=== PATIENT | female | born 1970 | race Caucasian/White ===

== ENCOUNTER 2017-08-23 15:19 | Observation (INO) ==
--- NOTE | 2017-08-23 15:35 | Emergency Department Note ---
Disposition Clinical Impression: Chest pain Qualifiers: Chest pain type: unspecified Qualified Code(s): R07.9 - Chest pain, unspecified Disposition: Admitted As Inpatient Condition: Fair Referrals: Juan M Meek MD [Primary Care Provider] - Time of Disposition: 17:32 Chest Pain HPI - General Stated Complaint: CP Time Seen by Provider: 08/23/17 15:27 Source: patient Mode of arrival: ambulatory Limitations: no limitations Vital Signs Reviewed: Yes Nursing Notes Reviewed: Yes - History of Present Illness HPI Narrative: A 47-year-old female states she has had chest discomfort for the last month off and on. States it has been getting progressively worse and it is worse with exertion. Patient's risk factors include a strong family history, hypertension. Pt complaint: chest pain Onset (ago): week(s) (4) Duration: intermittent Onset: during exertion Pain Location: substernal, left chest Quality: tightness, aching Pain Radiation: none Improves with: nothing Worsens with: exertion Associated symptoms: Reports: dyspnea Treatments prior to arrival chest pain: none - Related Data Home Medications Medication Instructions Recorded Confirmed Gabapentin [Neurontin] 100 mg PO HS 04/08/16 04/08/16 Lisinopril/Hydrochlorothiazide 1 each PO DAILY 04/08/16 04/08/16 [Zestoretic 10-12.5 mg Tablet] Meloxicam [Mobic] 15 mg PO DAILY 04/08/16 04/08/16 Previous Rx's Medication Instructions Recorded Azithromycin [Azithromycin 6-Tab 250 mg PO PER PKG DI #6 tab 07/14/17 Pack] Guaifenesin/Codeine Phosphate 5 ml PO Q6-8H PRN #118 ml 07/14/17 [Guaifen-Codeine 100-10 mg/5 ml] predniSONE [PredniSONE] 20 mg PO DAILY #13 tablet 07/14/17 Sulfamethoxazole/Trimeth DS 1 each PO BID #20 tablet 07/20/17 [Bactrim DS] Allergies Allergy/AdvReac Type Severity Reaction Status Date / Time Amoxicillin AdvReac See Verified 04/08/16 12:18 Comments All systems ED: reviewed and negative except as stated. Constitutional: Denies: fever, chills, weakness, weight change Eyes: Denies: eye pain, eye discharge, vision change ENT ED: Denies: ear pain, throat pain, dental pain, hearing loss, epistaxis, congestion, dysphagia Cardiovascular: Reports: chest pain, dyspnea on exertion. Denies: palpitations , edema, syncope Respiratory: Denies: cough, dyspnea, wheezes, hemoptysis, stridor Gastrointestinal: Denies: abdominal pain, nausea, vomiting, diarrhea, constipation, hematemesis, melena, hematochezia Genitourinary: Denies: dysuria, frequency, hematuria, discharge Musculoskeletal: Denies: back pain, neck pain, arthralgia, myalgia Integumentary: Denies: rash, abrasion, lesions Neurological: Denies: headache, weakness, numbness, paresthesias, confusion, abnormal gait, vertigo Psychiatric: Denies: anxiety, depression, suicidal thoughts, homicidal thoughts , auditory hallucinations, visual hallucinations Endocrine: Denies: fatigue Hematological/Lymphatic: Denies: easy bleeding, easy bruising Allergic/Immunologic: Denies: facial swelling, urticaria Chest Pain PMH - Past Medical History Medical history: Reports: other Surgical history: Reports: Psychiatric history: Reports: no psych history MOLD PARTER history: Reports: no MOLD PARTER history - Social History Smoking Status: Never smoker Alcohol use: Reports: none Drug use: Reports: none Physical Exam - General Limitations: no limitations General appearance: alert, in no apparent distress - Head Head exam: atraumatic, normocephalic, normal inspection - Eye Eye exam: Present: normal appearance, PERRL, EOMI - ENT ENT exam: normal exam, normal oropharynx, mucous membranes moist - Neck Neck exam: Present: normal inspection, full ROM, trachea midline - Chest Chest inspection: Present: normal inspection, symmetric chest wall rise - Respiratory Respiratory exam: Present: normal lung sounds bilaterally - Cardiovascular Cardiovascular exam: Present: regular rate, normal rhythm, normal heart sounds - Abdominal Exam Abdominal exam: Present: soft, Non-Tender. Absent: tenderness, distention, guarding, rebound, rigidity - Extremities Exam Extremities exam: Present: normal inspection, full ROM. Absent: tenderness, pedal edema - Expanded Lower Extremity Exam Neurovascular/Tendon exam: Absent: motor deficit, sensory deficit, tendon deficit Gait: observed and normal - Back Exam Back exam: Present: normal inspection, full ROM. Absent: tenderness - Neurological Exam Neurological exam: Present: alert, oriented X3 - Psychiatric Psychiatric exam: Present: normal affect, normal mood - Skin Skin exam: Present: warm, dry, intact, normal color Course - Reevaluation(s) Reevaluation #1: 47-year-old female with about a 4 week history of intermittent chest discomfort and dyspnea with exertion. Workup in the ER shows a EKG that shows no significant change, troponin is negative and d-dimer is negative. Patient does have risk factors. Patient will be admitted for further evaluation and treatment. Time: 17:31 - Consultations Consultation #1: Discussed with Lebron Whitmore, admit. Time: 17:31 Vital Signs Temperature 98 F 08/23/17 15:30 Pulse Rate 78 08/23/17 15:30 Respiratory Rate 18 08/23/17 15:30 Blood Pressure 130/100 08/23/17 15:30 O2 Sat by Pulse Oximetry 97 08/23/17 15:30 Temperature 98 F 08/23/17 15:30 Pulse Rate 79 08/23/17 17:07 Respiratory Rate 18 08/23/17 17:07 Blood Pressure 142/58 08/23/17 17:07 O2 Sat by Pulse Oximetry 97 08/23/17 17:07 Oxygen Delivery Oxygen Delivery Room Air Chest Pain - Lab Data Result diagrams: 08/23/17 15:36 08/23/17 15:36 Lab Results 08/23/17 08/23/17 08/23/17 Range/Units 15:36 15:36 15:36 WBC 8.9 (4.3-11.1) K/mcL RBC 4.64 (3.82-4.97) M/mcL Hgb 13.6 (11.5-15.4) g/dL Hct 41.4 (35.3-44.9) % MCV 89.2 (83.0-100.0) fL MCH 29.3 (28.0-33.3) pg MCHC 32.9 (31.6-35.5) g/dL RDW 12.7 (11.5-14.5) % Plt Count 249 (140-400) K/mcL MPV 12.1 (9.4-12.4) fL Immature Gran % 0.4 (0-4) % Seg Neutrophils % 60.2 % Lymphocytes % 32.3 % Monocytes % 5.6 % Eosinophils % 1.1 % Basophils % 0.4 % Neutrophils # 5.4 (1.6-8.9) K/mcL Lymphocytes # 2.9 (0.6-4.6) K/mcL Monocytes # 0.5 (0.0-1.3) K/mcL Eosinophils # 0.1 (0.0-0.6) K/mcL Basophils # 0.0 (0.0-0.2) K/mcL PT 11.2 (9.4-12.1) Seconds INR 1.0 APTT 26.9 (26.0-36.0) Seconds D-Dimer 338 (0-500) ng/mLFEU Sodium 138 (136-145) mEq/L Potassium 3.3 L (3.5-5.1) mEq/L Chloride 102 (98-107) mEq/L Carbon Dioxide 28 (23-29) mEq/L BUN 15 (6-20) mg/dL Creatinine 0.67 (0.60-1.20) mg/dL Est GFR ( Amer) > 60 (> 60) Est GFR (Non-Af Amer) > 60 (> 60) BUN/Creatinine Ratio 22 (6-26) Glucose 101 (70-105) mg/dL Calculated Osmolality 287 (280-300) Calcium 9.0 (8.6-10.3) mg/dL Troponin I < 0.03 (< 0.04) ng/mL - EKG Data EKG attestation: Yes I reviewed and interpreted this EKG. EKG shows normal: sinus rhythm Rate: normal Rhythm: NSR [place]/QRS: normal Interpretation: no acute changes Heart Score - Score History: Highly Suspicious EKG: Normal Age: 45-65 Risk Factors: 1-2 risk factors Troponin: Less than normal limit HEART Score Total: 4
[2017-08-23 16:22] LABS: Basophils % 0.4 %; Eosinophils # 0.1 K/mcL (0.0-0.6); Eosinophils % 1.1 %; Hematocrit 41.4 % (35.3-44.9); Hemoglobin 13.6 g/dL (11.5-15.4); Immature Granulocytes % 0.4 % (0-4); Lymphocytes # 2.9 K/mcL (0.6-4.6); Lymphocytes % 32.3 %; Mean Corpuscular HGB Conc 32.9 g/dL (31.6-35.5); Mean Corpuscular Hemoglobin 29.3 pg (28.0-33.3); Mean Corpuscular Volume 89.2 fL (83.0-100.0); Mean Platelet Volume 12.1 fL (9.4-12.4); Monocytes # 0.5 K/mcL (0.0-1.3); Monocytes % 5.6 %; Neutrophils # 5.4 K/mcL (1.6-8.9); Platelet Count 249 K/mcL (140-400); Red Blood Count 4.64 M/mcL (3.82-4.97); Red Cell Distribution Width 12.7 % (11.5-14.5); Segmented Neutrophils % 60.2 %
[2017-08-23 16:32] LABS: Prothrombin Time 11.2 Seconds (9.4-12.1)
[2017-08-23 16:34] LABS: Activated Partial Thrombo Time 26.9 Seconds (26.0-36.0)
[2017-08-23 17:19] LABS: BUN/Creatinine Ratio 22 (6-26); Blood Urea Nitrogen 15 mg/dL (6-20); Carbon Dioxide 28 mEq/L (23-29); Chloride 102 mEq/L (98-107); Glucose 101 mg/dL (70-105); Osmolality,Calculated 287 (280-300); Potassium 3.3 mEq/L (3.5-5.1); Sodium 138 mEq/L (136-145); eGFR For African Americans > 60 (> 60); eGFR For Non-African Americans > 60 (> 60)
[2017-08-23 17:20] LABS: Troponin I < 0.03 ng/mL (< 0.04)
[2017-08-23] MEDS ORDERED: Naloxone 0.4 MG/ML INJ IVP PRN (17:58)
[2017-08-23] MEDS ORDERED: Acetaminophen 325 MG TABLET PO PRN (17:58)
--- NOTE | 2017-08-23 18:05 | Internal Med History&Physical ---
Date of Encounter: 08/23/17 Time of Encounter: 18:03 Assessment and Plan (1) Chest pain Current visit: Yes Status: Acute with left sided chest pain that started 4-6 weeks prior to presentation. Worsened over the last 3 days and woke patient from sleep on day presentation. No known CAD, no previous ischemic eval. Received ASA in the ED. CXR non- acute. Initial troponin negative, EKG without acute ST changes. Continue to cycle troponin, check echo. NPO at midnight for stress test in the morning. Hgb A1c, lipid panel pending. Qualifiers: Chest pain type: unspecified Qualified Code(s): R07.9 - Chest pain, unspecified (2) Hypertension Current visit: Yes Status: Acute per hx. SBP in 160s on arrival. Suspect secondary to stress/anxiety and chest pain. Resume home BP medication. Monitor BP and titrate PRN Qualifiers: Hypertension type: essential hypertension Qualified Code(s): I10 - Essential (primary) hypertension (3) Stress at home Current visit: Yes Status: Acute patient reports increased stressors at home with in-laws and raising grandchild. Possibly contributing to chest pain and elevated BP. Recommend outpatient follow-up with PCP. (4) Fibromyalgia Current visit: Yes Status: Acute per hx. Holding home meloxicam until ACS ruled out. Continue at discharge (5) DVT prophylaxis Current visit: Yes Status: Acute Heparin Internal Medicine - H&P: HPI Chief complaint: chest pain Admitted From: Home Plans for Post Hospital Care: Home History of present illness: Ms. Walls is a 47 year old female with PMH fibromyalgia and hypertension who presented to [facility] on 08/23/2017 with complaints of chest pain. She was placed in observation status for further workup and treatment. Information obtained from chart review and patient report. Patient reports chest pain for the last 4-6 weeks. Describes chest pain as a dull ache that radiates to left arm. Patient says symptoms have worsened over the last 3 days and chest pain woke her up from sleep this morning. She has been taking an aspirin daily. She reports some associated soreness of breath and nausea. Chest pain is not reproducible on exam. She does report increased stressors at home and thinks anxiety could be contributing Past Med Surg Social Fam HX - Past Medical History Medical history: other Psychiatric history: no psych history - Past Surgical History Surgical History: - Social History Smoking Status: Never smoker Smokeless Tobacco Status: No Alcohol use: none Drug use: none - Additional Family History Additional family history: Maternal grandmother [place], maternal uncle [place] Internal Medicine - H&P: Meds Gabapentin [Neurontin] 100 mg PO HS 04/08/16 [History] Lisinopril/Hydrochlorothiazide [Zestoretic 10-12.5 mg Tablet] 1 each PO DAILY [History] Meloxicam [Mobic] 15 mg PO DAILY 04/08/16 [History] Azithromycin [Azithromycin 6-Tab Pack] 250 mg PO PER PKG DI #6 tab 07/14/17 [Rx] Guaifenesin/Codeine Phosphate [Guaifen-Codeine 100-10 mg/5 ml] 5 ml PO Q6-8H PRN #118 ml 07/14/17 [Rx] predniSONE [PredniSONE] 20 mg PO DAILY #13 tablet 07/14/17 [Rx] Sulfamethoxazole/Trimeth DS [Bactrim DS] 1 each PO BID #20 tablet 07/20/17 [Rx] 3 Allergy/AdvReac Type Severity Reaction Status Date / Time Amoxicillin AdvReac See Verified 04/08/16 12:18 Comments All Systems PM: A 10-system review of systems was performed and is negative for pertinent findings except as documented above in the HPI. - Constitutional Constitutional: no chills, no fever(s), no night sweats - EENT Eyes: no change in vision, no discharge, no pain, no photophobia Ears: no ear discharge, no ear pain, no tinnitus Nose, mouth and throat: no dysphagia, no nasal discharge, no neck pain, no sore throat - Cardiovascular Cardiovascular ROS IM: chest pain, no diaphoresis, no dyspnea, no lightheadedness, no palpitations, no syncope - Respiratory Respiratory: dyspnea, no cough, no wheezing, no excessive phlegm production - Gastrointestinal Gastrointestinal: no abdominal pain, no diarrhea, no hematemesis, no hematochezia, no melena, no nausea, no vomiting - Genitourinary Genitourinary: no change in urinary stream, no dysuria, no flank pain, no hematuria - Musculoskeletal Musculoskeletal ROS IM: no numbness, no tingling - Integumentary Integumentary IM: no rash, no unusual bruising - Neurological Neurological ROS: no confusion, no convulsions, no focal weakness, no numbness, no tingling, no tremor(s) - Hematologic/Lymphatic Hematologic/Lymphatic: no easy bruising - Constitutional Vitals: Temp Pulse Resp BP Pulse Ox 98 F 104 16 143/104 96 08/23/17 15:30 08/23/17 17:57 08/23/17 17:57 08/23/17 17:57 08/23/17 17:57 General appearance: Present: A&O X 3, no acute distress - Head Head exam: Present: atraumatic, normocephalic - Eye Eye exam: Present: PERRL, conjuntiva pink, sclera anicteric Pupils: Present: PERRL - Neck Neck exam general surgery: Present: supple, trachea midline. Absent: lymphadenopathy - Respiratory Respiratory exam: Present: CTAB. Absent: accessory muscle use, rales, rhonchi, wheezes - Cardiovascular Cardiovascular exam: Present: RRR, +S1, +S2. Absent: diastolic murmur, gallop, rubs, systolic murmur - GI/Abdominal GI/Abdominal exam: Present: normal bowel sounds, soft, no peritoneal signs. Absent: distended, tenderness - Extremities Exam Extremities exam: Present: warm, radial pulses palpable and symmetrical. Absent : calf tenderness, cyanotic, pedal edema - Neurological Exam Neurological exam: Present: CN II-XII intact, oriented X3, no focal deficits. Absent: pronater drift, facial droop, speech deficit - Skin Skin exam: Present: dry, intact Internal Med - H&P Results - Labs CBC & Chem 7: 08/23/17 15:36 08/23/17 15:36 Labs: Short CBC 08/23/17 Range/Units 15:36 WBC 8.9 (4.3-11.1) K/mcL Hgb 13.6 (11.5-15.4) g/dL Hct 41.4 (35.3-44.9) % Plt Count 249 (140-400) K/mcL Neutrophils # 5.4 (1.6-8.9) K/mcL BMP 08/23/17 15:36 Sodium 138 Potassium 3.3 L Chloride 102 Carbon Dioxide 28 BUN 15 Creatinine 0.67 Glucose 101 Calcium 9.0 Cardiac Enzymes 08/23/17 Range/Units 15:36 Troponin I < 0.03 (< 0.04) ng/mL - Impressions ITS Impressions Chest X-Ray 08/23/17 15:29 IMPRESSION: Stable portable study. D/ / Roxanne Munguia Cha, MD / Roxanne Munguia Cha, MD Interpreting Provider: Roxanne Munguia Cha, MD
[2017-08-23] MEDS: *HR* HYDROcodone/Acet 5/325 mg TABLET PO PRN (21:26)
[2017-08-23] MEDS: *HR* Heparin 5,000 UNIT/ML VIAL SQ SCH (21:27)
[2017-08-24] MEDS: *HR* Heparin 5,000 UNIT/ML VIAL SQ SCH (06:00)
[2017-08-24] MEDS ORDERED: Regadenoson 0.4 MG/5 ML SYRINGE IVP ONE (06:12)
[2017-08-24] MEDS ORDERED: Aspirin Enteric Coated 81 MG Tablet PO SCH (09:00)
[2017-08-24] MEDS: *HR* HYDROcodone/Acet 5/325 mg TABLET PO PRN (09:17)
[2017-08-24 10:33] VITALS: BP 132/75
[2017-08-24 11:34] LABS: Hematocrit 39.9 % (35.3-44.9); Mean Corpuscular HGB Conc 32.6 g/dL (31.6-35.5); Mean Corpuscular Hemoglobin 29.3 pg (28.0-33.3); Mean Corpuscular Volume 89.9 fL (83.0-100.0); Mean Platelet Volume 11.9 fL (9.4-12.4); Platelet Count 222 K/mcL (140-400); Red Blood Count 4.44 M/mcL (3.82-4.97); Red Cell Distribution Width 12.8 % (11.5-14.5)
[2017-08-24 11:43] LABS: Chol/HDL Ratio 4.6 (0-4.9)
[2017-08-24 11:44] LABS: BUN/Creatinine Ratio 18 (6-26); Blood Urea Nitrogen 12 mg/dL (6-20); Calcium 9.1 mg/dL (8.6-10.3); Carbon Dioxide 29 mEq/L (23-29); Chloride 103 mEq/L (98-107); Glucose 123 mg/dL (70-105); Osmolality,Calculated 287 (280-300); Potassium 3.9 mEq/L (3.5-5.1); Sodium 138 mEq/L (136-145); eGFR For African Americans > 60 (> 60); eGFR For Non-African Americans > 60 (> 60)
--- NOTE | 2017-08-24 14:44 | Discharge Summary ---
Orders not resulted at time of discharge: Pending orders 08/23/17 18:14 NM eder perf SPECT multi [NM] Routine 08/24/17 10:45 Hgb A1C AM 0400 Date of Encounter: 08/24/17 Time of Encounter: 14:42 - Discharge Diagnosis (1) Chest pain Priority: Primary Status: Resolved Qualifiers: Chest pain type: unspecified Qualified Code(s): R07.9 - Chest pain, unspecified (2) Hypertension Priority: Secondary Status: Acute Qualifiers: Hypertension type: essential hypertension Qualified Code(s): I10 - Essential (primary) hypertension (3) Stress at home Priority: Primary Status: Acute (4) Fibromyalgia Priority: Primary Status: Acute (5) Hyperlipemia Priority: Primary Status: Acute Qualifiers: Hyperlipidemia type: pure hypercholesterolemia Qualified Code(s): E78.00 - Pure hypercholesterolemia, unspecified; E78.0 - Pure hypercholesterolemia Hospital course: Ms. Walls is a 47 year old female with PMH hypertension and fibromyalgia presented to [facility] on 08/23/2017 with complaints of chest pain. He has ruled out with negative serial troponin, EKG without acute ST changes. Negative stress tests and TTE with preserved EF and no wall motion abnormalities. Suspect chest pain possibly secondary to uncontrolled BP on arrival and/or increased home stressors. Chest pain resolved at time of discharge. She was found to have hyperlipidemia and was started on a statin. Advised to follow-up with PCP and return to ER if chest pain and/or shortness of breath recurs. Discharge discussed with: patient - Time Spent with Patient Total time spent providing and/or coordinating discharge services: - Discharge Medications Prescriptions: Atorvastatin Calcium [Lipitor] 20 mg PO HS #30 tablet Home Medications: Lisinopril/Hydrochlorothiazide [Zestoretic 10-12.5 mg Tablet] 1 each PO DAILY [History] Meloxicam [Mobic] 15 mg PO DAILY 04/08/16 [History] Atorvastatin Calcium [Lipitor] 20 mg PO HS #30 tablet 08/24/17 [Rx] Allergies/Adverse Reactions: 3 Allergy/AdvReac Type Severity Reaction Status Date / Time Amoxicillin AdvReac See Verified 04/08/16 12:18 Comments Date of admission: 08/23/17 17:59 Primary care physician: Juan M Meek MD Discharging clinician: Sarah Cross Anticipated date of discharge: 08/24/17 - Constitutional Vitals: Temp Pulse Resp BP Pulse Ox 98.2 F 64 18 132/75 98 08/24/17 10:32 08/24/17 10:32 08/24/17 10:32 08/24/17 10:32 08/24/17 10:32 General appearance: Present: A&O X 3, no acute distress - Head Head exam: Present: atraumatic, normocephalic - Eye Eye exam: Present: PERRL, conjuntiva pink, sclera anicteric Pupils: Present: PERRL - Neck Neck exam general surgery: Present: supple, trachea midline. Absent: lymphadenopathy - Respiratory Respiratory exam: Present: CTAB. Absent: accessory muscle use, rales, rhonchi, wheezes - Cardiovascular Cardiovascular exam: Present: RRR, +S1, +S2. Absent: diastolic murmur, gallop, rubs, systolic murmur - GI/Abdominal GI/Abdominal exam: Present: normal bowel sounds, soft, no peritoneal signs. Absent: distended, tenderness - Extremities Exam Extremities exam: Present: warm, radial pulses palpable and symmetrical. Absent : calf tenderness, cyanotic, pedal edema - Neurological Exam Neurological exam: Present: CN II-XII intact, oriented X3, no focal deficits. Absent: pronater drift, facial droop, speech deficit - Skin Skin exam: Present: dry, intact - Patient Status Disposition: Home, Self-Care Condition: Good Functional capacity at discharge: independent ambulation Overall status at discharge: patient is back to baseline - Discharge Instructions Instructions: Chest Pain (DC), Anxiety (DC), Atorvastatin (By mouth), Hyperlipidemia (DC) Forms: ED Satisfaction Letter - Diet and Activity Activity: increase activity as tolerated Diet: advance to your usual diet
[2017-08-24 18:06] LABS: Hemoglobin A1C 5.6 %
--- NOTE | 2017-08-25 18:08 | Electrocardiograph Report ---
[address] [address] Test Date: 2017-08-23 Pat Name: Genoveva Walls Department: 103 Room: 3B Gender: F Clinical Evaluator: TMR : 1970 Requested By: Anders Han Order Number: [id number] Reading MD: Darlene Bowles Measurements Intervals [place] Rate: 69 P: 28 WV: 132 QRS: 12 QRSD: 89 T: 49 QT: 379 QTc: 397 Interpretive Statements SINUS RHYTHM Electronically Signed On 08-25-2017 18:06:58 EST by Darlene Bowles
== END 2017-08-24 15:50 | disposition home or self-care (01) ==
LOC: EMEROO 15:19 → 3BNU 15:19 → SUATTDRO 17:59 → 3BNU 18:15
PROVIDERS: ADMIT Nurse Practitioner Family; ATTEND Registered Nurse

== ENCOUNTER 2020-10-05 20:24 | Inpatient (IN) ==
[2020-10-05 21:48] LABS: Basophils # 0.1 K/mcL (0.0-0.2); Basophils % 0.5 %; Eosinophils # 0.1 K/mcL (0.0-0.6); Eosinophils % 1.4 %; Hematocrit 43.1 % (35.3-44.9); Hemoglobin 14.3 g/dL (11.5-15.4); Immature Granulocytes % 0.3 % (0-4); Lymphocytes # 3.2 K/mcL (0.6-4.6); Lymphocytes % 33.4 %; Mean Corpuscular HGB Conc 33.2 g/dL (31.6-35.5); Mean Corpuscular Volume 90.4 fL (83.0-100.0); Mean Platelet Volume 11.9 fL (9.4-12.4); Monocytes # 0.6 K/mcL (0.0-1.3); Monocytes % 6.1 %; Neutrophils # 5.6 K/mcL (1.6-8.9); Platelet Count 243 K/mcL (140-400); Red Blood Count 4.77 M/mcL (3.82-4.97); Red Cell Distribution Width 11.9 % (11.5-14.5); Segmented Neutrophils % 58.3 %; White Blood Count 9.6 K/mcL (4.3-11.1)
[2020-10-05 22:00] LABS: BUN/Creatinine Ratio 15 (6-26); Blood Urea Nitrogen 11 mg/dL (6-20); Carbon Dioxide 31 mEq/L (23-29); Chloride 102 mEq/L (98-107); Glucose 111 mg/dL (70-105); Osmolality,Calculated 292 (280-300); Potassium 3.4 mEq/L (3.5-5.1); Sodium 141 mEq/L (136-145); eGFR For African Americans > 60 (> 60); eGFR For Non-African Americans > 60 (> 60)
[2020-10-05 22:01] LABS: Troponin I < 0.03 ng/mL (< 0.04)
[2020-10-05] MEDS ORDERED: Aspirin 81 MG TAB.CHEW PO ONE (23:34)
[2020-10-05] MEDS ORDERED: GI Cocktail 40 ML EACH PO ONE (23:35)
[2020-10-06] MEDS: Nitroglycerin 0.4 MG TAB.SUBL SL SCH (00:59)
[2020-10-06] MEDS ORDERED: Naloxone 0.4 MG/ML INJ IVP PRN (03:01)
[2020-10-06] MEDS ORDERED: Melatonin 3 MG TABLET PO PRN (03:01)
[2020-10-06] MEDS ORDERED: Ondansetron 4 MG/2 ML VIAL IVP PRN (03:01)
[2020-10-06] MEDS: Acetaminophen 325 MG TABLET PO PRN ×2 (06:05→12:10)
[2020-10-06] MEDS: Famotidine 20 MG TABLET PO SCH ×2 (06:05→15:06)
[2020-10-06] MEDS: Aspirin 81 MG TAB.CHEW PO SCH (08:05)
[2020-10-07] MEDS: Aspirin 81 MG TAB.CHEW PO SCH (07:51)
[2020-10-07] MEDS: Famotidine 20 MG TABLET PO SCH ×2 (07:52→15:57)
[2020-10-07] MEDS: Furosemide 40 MG TABLET PO SCH (07:52)
[2020-10-07] MEDS: *HR* HYDROcodone/Acet 5/325 mg TABLET PO PRN (14:21)
[2020-10-07] MEDS: Nitroglycerin 0.4 MG TAB.SUBL SL PRN ×2 (18:03→18:08)
[2020-10-08 03:48] LABS: BUN/Creatinine Ratio 21 (6-26); Blood Urea Nitrogen 15 mg/dL (6-20); Carbon Dioxide 29 mEq/L (23-29); Chloride 103 mEq/L (98-107); Glucose 100 mg/dL (70-105); Osmolality,Calculated 291 (280-300); Potassium 3.9 mEq/L (3.5-5.1); Sodium 140 mEq/L (136-145); eGFR For African Americans > 60 (> 60); eGFR For Non-African Americans > 60 (> 60)
[2020-10-08] MEDS: Furosemide 40 MG TABLET PO SCH (08:22)
[2020-10-08] MEDS: Famotidine 20 MG TABLET PO SCH ×2 (08:22→15:10)
[2020-10-08] MEDS: Aspirin 81 MG TAB.CHEW PO SCH (08:22)
[2020-10-08] MEDS ORDERED: ISOVUE-370 200 ML INFUS..BTL ONE (13:43)
[2020-10-08] MEDS ORDERED: Heparin 1,000 UNITS/500 mL 500 ML ONE (13:43)
[2020-10-08] MEDS ORDERED: *HR* Heparin 10,000 UNIT/10 ML VIAL ONE (13:43)
[2020-10-08] MEDS ORDERED: *HR* Midazolam HCl 2 MG/2 ML VIAL ONE (13:43)
[2020-10-08] MEDS ORDERED: *HR* FentaNYL (PF) 100 MCG/2 ML VIAL ONE (13:43)
[2020-10-08] MEDS ORDERED: 0.9 % Sodium Chloride 2,000 ML ONE (13:43)
[2020-10-08] MEDS ORDERED: Nitroglycerin 1,000 MCG/5 ML VIAL IV ONE (13:44)
[2020-10-08] MEDS: *HR* HYDROcodone/Acet 5/325 mg TABLET PO PRN (15:10)
[2020-10-08 16:38] VITALS: BP 119/71
== END 2020-10-08 17:09 | disposition home or self-care (01) | DRG 287 ==
LOC: 3BNU 20:24 → EMEROOARM 20:24 → SUATTDRO 10-06 02:49 → 3BNU 10-06 03:16
PROVIDERS: ADMIT Family Medicine; ATTEND Internal Medicine

== ENCOUNTER 2021-02-06 16:18 | Observation (INO) ==
[2021-02-06] MEDS ORDERED: Ondansetron 4 MG/2 ML VIAL IVP PRN (18:13)
[2021-02-06] MEDS ORDERED: Naloxone 0.4 MG/ML INJ IVP PRN (18:13)
[2021-02-06] MEDS ORDERED: dexAMETHasone 4 MG TABLET PO SCH (18:15)
[2021-02-06] MEDS ORDERED: Benzonatate 100 MG CAPSULE PO PRN (18:18)
[2021-02-06] MEDS: Tiotropium 10 INH DOSE IH SCH (18:33)
[2021-02-06 19:00] LABS: Basophils % 0.3 %; Eosinophils % 0.1 %; Hematocrit 42.3 % (35.3-44.9); Hemoglobin 14.2 g/dL (11.5-15.4); Immature Granulocytes % 0.4 % (0-4); Lymphocytes # 2.4 K/mcL (0.6-4.6); Mean Corpuscular HGB Conc 33.6 g/dL (31.6-35.5); Mean Corpuscular Volume 89.4 fL (83.0-100.0); Mean Platelet Volume 12.1 fL (9.4-12.4); Monocytes # 0.4 K/mcL (0.0-1.3); Monocytes % 5.5 %; Neutrophils # 4.1 K/mcL (1.6-8.9); Platelet Count 176 K/mcL (140-400); Red Blood Count 4.73 M/mcL (3.82-4.97); Red Cell Distribution Width 12.5 % (11.5-14.5); Segmented Neutrophils % 58.7 %
[2021-02-06] MEDS: dexAMETHasone 4 MG TABLET PO SCH (19:02)
[2021-02-06 20:43] LABS: Alanine Aminotransferase 48 Units/L (7-52); Albumin 3.4 g/dL (3.5-5.7); Alkaline Phosphatase 101 Units/L (34-104); Aspartate Amino Transferase 49 Units/L (13-39); BUN/Creatinine Ratio 22 (6-26); Bilirubin,Total 0.5 mg/dL (0.3-1.0); Blood Urea Nitrogen 17 mg/dL (6-20); Calcium 8.8 mg/dL (8.6-10.3); Carbon Dioxide 22 mEq/L (23-29); Chloride 106 mEq/L (98-107); Globulin 3.4 g/dL (2.4-3.5); Glucose 92 mg/dL (70-105); Osmolality,Calculated 287 (280-300); Sodium 138 mEq/L (136-145); Total Protein 6.8 g/dL (6.4-8.9); eGFR For African Americans > 60 (> 60); eGFR For Non-African Americans > 60 (> 60)
[2021-02-06] MEDS: Acetaminophen 325 MG TABLET PO PRN (20:50)
[2021-02-06 22:53] LABS: Bilirubin,Urine Negative (Negative); Blood,Urine Small (Negative); Clarity,Urine Clear (Clear); Color,Urine Yellow (Yellow); Glucose,Urine (UA) Normal (Normal); Ketones,Urine Negative (Negative); Leukocyte Esterase,Urine Negative (Negative); Mucus,Urine Few per lpf (None-Few); Nitrite,Urine Negative (Negative); PH,Urine 6.5 pH Units (5.0-8.0); Protein,Urine Trace mg/dL (Neg-Trace); Specific Gravity,Urine 1.028 (1.010-1.025); Squamous Epithelial Cell,Urine Few per hpf (None-Few); Urobilinogen,Urine Normal (Normal); WBC,Urine 0-3 per hpf (0-3)
[2021-02-07 03:19] LABS: Hemoglobin 14.2 g/dL (11.5-15.4); Mean Corpuscular Hemoglobin 29.6 pg (28.0-33.3); Mean Corpuscular Volume 89.6 fL (83.0-100.0); Platelet Count 189 K/mcL (140-400); Red Cell Distribution Width 12.6 % (11.5-14.5); White Blood Count 6.1 K/mcL (4.3-11.1)
[2021-02-07] MEDS: Acetaminophen 325 MG TABLET PO PRN (03:21)
[2021-02-07 03:31] VITALS: TEMP 97.8
[2021-02-07 03:43] LABS: BUN/Creatinine Ratio 23 (6-26); Blood Urea Nitrogen 16 mg/dL (6-20); Calcium 8.6 mg/dL (8.6-10.3); Carbon Dioxide 26 mEq/L (23-29); Chloride 105 mEq/L (98-107); Glucose 176 mg/dL (70-105); Osmolality,Calculated 291 (280-300); Potassium 4.3 mEq/L (3.5-5.1); Sodium 138 mEq/L (136-145); eGFR For African Americans > 60 (> 60); eGFR For Non-African Americans > 60 (> 60)
[2021-02-07 07:22] VITALS: BP 109/71; PULSE 81; O2SAT 93
[2021-02-07] MEDS ORDERED: Isovue-370 500 ML BOTTLE IVP ONE (07:49)
[2021-02-07] MEDS: dexAMETHasone 4 MG TABLET PO SCH (09:35)
[2021-02-07] MEDS: Tiotropium 10 INH DOSE IH SCH (10:48)
== END 2021-02-07 12:01 | disposition home or self-care (01) ==
LOC: 3BNU
PROVIDERS: ADMIT Pharmacist; ATTEND Pharmacist